=== PATIENT | male | born 1935 | race Caucasian/White ===

== ENCOUNTER 2017-06-16 08:02 | Inpatient (IN) | payer MEDICARE, MEDICAID ==
[~2017-06-16] VITALS: Ht 182.9 cm; Wt 87.7 kg
[~2017-06-16 08:02] MED LIST: CIPR500T3 PO; FURO20TA3 PO; GABA600T2 PO; HYDR-3237 PO; LEVO750T6 PO; POTA20TA89 PO
[2017-06-16] MEDS ORDERED: morphine SULFATE 10 MG/ML, 1ML IVPush ONE (08:30)
[2017-06-16] MEDS ORDERED: SODIUM CHLORIDE FLUSH 10ML SYR IVF ONE ×2 (08:30)
[2017-06-16] MEDS ORDERED: morphine SULFATE 10 MG/ML, 1ML ONE ×2 (08:48→15:18)
[2017-06-16] MEDS ORDERED: ONDANSETRON 2MG/ML, 2ML ONE (08:48)
[2017-06-16 09:19] LABS: HEMATOCRIT 40.2 % (39.2-51.8); HEMOGLOBIN 13.7 g/dL (13.7-18.0); WHITE BLOOD COUNT 12.4 x10^3/uL (3.4-10)
[2017-06-16 09:31] LABS: BLOOD UREA NITROGEN 36 mg/dL (7-18)
[2017-06-16 09:38] LABS: IS PT STATUS REG ER OR PRE ER? YES
[2017-06-16] MEDS ORDERED: BACITRACIN ZINC OINT 500U/GM, 0.9 GM ONE (10:22)
[2017-06-16] MEDS ORDERED: CEFTRIAXONE PMX 1GM/50ML 50 ML IV ONE (13:00)
[2017-06-16] MEDS ORDERED: SODIUM CHLORIDE 0.9% 1,000 ML IV SCH (15:04)
[2017-06-16] MEDS: morphine SULFATE 10 MG/ML, 1ML IVPush PRN ×2 (15:26→21:14)
[2017-06-16] MEDS ORDERED: ONDANSETRON 2MG/ML, 2ML IVPush PRN (15:30)
[2017-06-16] MEDS ORDERED: ACETAMINOPHEN 325 MG TABLET PO PRN (15:30)
[2017-06-16] MEDS ORDERED: ONDANSETRON ODT 4 MG PO PRN (15:30)
[2017-06-16] MEDS ORDERED: PHARMACY MAY ADJ FOR RENAL FX MC PRN (15:30)
[2017-06-16] MEDS: HEPARIN 5,000 UNITS/ML, 1ML SQ SCH ×2 (16:02→23:20)
[2017-06-16] MEDS: CEFTAROLINE 600 MG in SODIUM CHLORIDE 0.9% 100 ML IV SCH (16:02)
[2017-06-16] MEDS: HYDROcodone/APAP 5/325 TABLET PO PRN (20:05)
[2017-06-16] MEDS: GABAPENTIN 300 MG CAPSULE PO SCH (20:05)
[2017-06-16 20:14] VITALS: BP 132/72
[2017-06-17] MEDS: HYDROcodone/APAP 5/325 TABLET PO PRN (00:53)
[2017-06-17 03:30] VITALS: BP 134/80
[2017-06-17] MEDS: morphine SULFATE 10 MG/ML, 1ML IVPush PRN ×3 (04:10→16:03)
[2017-06-17] MEDS: CEFTAROLINE 600 MG in SODIUM CHLORIDE 0.9% 100 ML IV SCH ×2 (04:10→16:02)
[2017-06-17 06:15] LABS: HEMATOCRIT 33.8 % (39.2-51.8); HEMOGLOBIN 11.6 g/dL (13.7-18.0); WHITE BLOOD COUNT 9.4 x10^3/uL (3.4-10)
[2017-06-17 06:31] LABS: ASPARTATE AMINO TRANSFERASE 32 U/L (15-37); BLOOD UREA NITROGEN 32 mg/dL (7-18)
[2017-06-17 06:39] LABS: ANISOCYTOSIS 1+; POLYCHROMASIA 1+
[2017-06-17] MEDS: HEPARIN 5,000 UNITS/ML, 1ML SQ SCH ×3 (08:06→23:47)
[2017-06-17 08:09] VITALS: BP 138/76
[2017-06-17] MEDS ORDERED: SODIUM CHLORIDE 0.9% 1,000 ML IV SCH (10:30)
[2017-06-17 14:26] VITALS: BP 120/78
[2017-06-17 18:58] VITALS: BP 137/80
[2017-06-17] MEDS: GABAPENTIN 300 MG CAPSULE PO SCH (20:17)
[2017-06-18 01:20] VITALS: BP 143/91
[2017-06-18] MEDS: CEFTAROLINE 600 MG in SODIUM CHLORIDE 0.9% 100 ML IV SCH ×2 (04:06→16:29)
[2017-06-18] MEDS: morphine SULFATE 10 MG/ML, 1ML IVPush PRN ×2 (04:24→17:24)
[2017-06-18 05:22] LABS: BLOOD UREA NITROGEN 23 mg/dL (7-18)
[2017-06-18 06:33] LABS: HEMOGLOBIN 12.2 g/dL (13.7-18.0); WHITE BLOOD COUNT 8.9 x10^3/uL (3.4-10)
[2017-06-18 07:56] VITALS: BP 151/81
[2017-06-18] MEDS: HEPARIN 5,000 UNITS/ML, 1ML SQ SCH ×2 (08:49→16:29)
[2017-06-18] MEDS: MULTIVITAMIN 1 TABLET PO SCH (11:31)
[2017-06-18 13:25] VITALS: BP 172/81
[2017-06-18 13:57] VITALS: BP 148/75
[2017-06-18] MEDS: HYDROcodone/APAP 5/325 TABLET PO PRN ×2 (14:01→20:08)
[2017-06-18 19:00] VITALS: BP 156/82
[2017-06-18] MEDS: GABAPENTIN 300 MG CAPSULE PO SCH (20:08)
[2017-06-19] MEDS: HEPARIN 5,000 UNITS/ML, 1ML SQ SCH ×3 (00:09→16:05)
[2017-06-19 01:29] VITALS: BP 166/91
[2017-06-19] MEDS: morphine SULFATE 10 MG/ML, 1ML IVPush PRN (02:09)
[2017-06-19] MEDS: CEFTAROLINE 600 MG in SODIUM CHLORIDE 0.9% 100 ML IV SCH ×2 (03:45→16:05)
[2017-06-19 05:32] LABS: HEMATOCRIT 32.9 % (39.2-51.8); HEMOGLOBIN 11.3 g/dL (13.7-18.0); WHITE BLOOD COUNT 10.6 x10^3/uL (3.4-10)
[2017-06-19 06:07] LABS: BLOOD UREA NITROGEN 21 mg/dL (7-18)
[2017-06-19 07:18] VITALS: BP 164/81
[2017-06-19] MEDS: LISINOPRIL 10 MG TABLET PO SCH (08:26)
[2017-06-19] MEDS: DOCUSATE 100 MG CAPSULE PO SCH ×2 (08:26→21:06)
[2017-06-19] MEDS: POLYETHYLENE GLYCOL 17 GM PACKET PO SCH (08:27)
[2017-06-19] MEDS: HYDROcodone/APAP 5/325 TABLET PO PRN ×2 (08:27→17:56)
[2017-06-19] MEDS: MULTIVITAMIN 1 TABLET PO SCH (08:27)
[2017-06-19 13:54] VITALS: BP 142/80
[2017-06-19 20:02] VITALS: BP 120/69
[2017-06-19] MEDS: GABAPENTIN 300 MG CAPSULE PO SCH (21:06)
[2017-06-20 01:24] VITALS: BP 123/78
[2017-06-20] MEDS: CEFTAROLINE 600 MG in SODIUM CHLORIDE 0.9% 100 ML IV SCH ×2 (03:00→15:25)
[2017-06-20] MEDS: HEPARIN 5,000 UNITS/ML, 1ML SQ SCH ×3 (03:00→22:32)
[2017-06-20] MEDS: HYDROcodone/APAP 5/325 TABLET PO PRN ×3 (03:01→22:32)
[2017-06-20 04:51] LABS: BLOOD UREA NITROGEN 22 mg/dL (7-18)
[2017-06-20 04:53] LABS: HEMATOCRIT 32.8 % (39.2-51.8); HEMOGLOBIN 11.1 g/dL (13.7-18.0); WHITE BLOOD COUNT 7.5 x10^3/uL (3.4-10)
[2017-06-20] MEDS: morphine SULFATE 10 MG/ML, 1ML IVPush PRN ×2 (04:54→11:37)
[2017-06-20 06:40] VITALS: BP 113/70
[2017-06-20] MEDS: POLYETHYLENE GLYCOL 17 GM PACKET PO SCH (08:43)
[2017-06-20] MEDS: DOCUSATE 100 MG CAPSULE PO SCH ×2 (08:43→22:32)
[2017-06-20] MEDS: MULTIVITAMIN 1 TABLET PO SCH (08:51)
[2017-06-20] MEDS: LISINOPRIL 10 MG TABLET PO SCH (08:51)
[2017-06-20 13:56] VITALS: BP 138/84
[2017-06-20 20:00] VITALS: BP 132/75
[2017-06-20] MEDS: GABAPENTIN 300 MG CAPSULE PO SCH (22:32)
[2017-06-21 02:51] VITALS: BP 124/75
[2017-06-21] MEDS: CEFTAROLINE 600 MG in SODIUM CHLORIDE 0.9% 100 ML IV SCH (03:47)
[2017-06-21] MEDS: morphine SULFATE 10 MG/ML, 1ML IVPush PRN ×3 (03:51→22:21)
[2017-06-21] MEDS: HYDROcodone/APAP 5/325 TABLET PO PRN ×3 (05:36→20:41)
[2017-06-21] MEDS: HEPARIN 5,000 UNITS/ML, 1ML SQ SCH ×3 (06:29→20:41)
[2017-06-21 09:01] VITALS: BP 151/70
[2017-06-21] MEDS: POLYETHYLENE GLYCOL 17 GM PACKET PO SCH (09:03)
[2017-06-21] MEDS: MULTIVITAMIN 1 TABLET PO SCH (09:03)
[2017-06-21] MEDS: DOCUSATE 100 MG CAPSULE PO SCH ×2 (09:03→20:41)
[2017-06-21] MEDS: LISINOPRIL 10 MG TABLET PO SCH (09:03)
[2017-06-21] MEDS: CEFAZOLIN PMX 1GM/50ML 50 ML IV SCH ×2 (12:25→20:40)
[2017-06-21 14:27] VITALS: BP 138/71
[2017-06-21 20:00] VITALS: BP 144/81
[2017-06-21] MEDS: DOXYCYCLINE 100MG TABLET PO SCH (20:40)
[2017-06-21] MEDS: GABAPENTIN 300 MG CAPSULE PO SCH (20:41)
[2017-06-22 02:00] VITALS: BP 118/70
[2017-06-22] MEDS: CEFAZOLIN PMX 1GM/50ML 50 ML IV SCH (04:42)
[2017-06-22] MEDS: HEPARIN 5,000 UNITS/ML, 1ML SQ SCH ×2 (04:49→14:01)
[2017-06-22 07:12] VITALS: BP 137/79
[2017-06-22] MEDS: POLYETHYLENE GLYCOL 17 GM PACKET PO SCH (10:40)
[2017-06-22] MEDS: DOCUSATE 100 MG CAPSULE PO SCH (10:40)
[2017-06-22] MEDS: LISINOPRIL 10 MG TABLET PO SCH (10:40)
[2017-06-22] MEDS: MULTIVITAMIN 1 TABLET PO SCH (10:40)
[2017-06-22] MEDS: DOXYCYCLINE 100MG TABLET PO SCH (10:40)
[2017-06-22 13:07] VITALS: BP 139/75
[2017-06-22] MEDS: HYDROcodone/APAP 5/325 TABLET PO PRN (14:01)
[2017-06-22] MEDS ORDERED: HEPA50002 SQ (14:03)
[2017-06-22] MEDS ORDERED: HYDR-3240 PO (14:03)
[2017-06-22] MEDS ORDERED: DOCU-131 PO (14:03)
[2017-06-22] MEDS ORDERED: CEPH-376 PO (14:03)
[2017-06-22] MEDS ORDERED: TRAM50TA2 PO (14:03)
[2017-06-22] MEDS ORDERED: POLY17PO5 PO (14:03)
[2017-06-22] MEDS ORDERED: LISI-167 PO (14:03)
[2017-06-22] MEDS ORDERED: ACET325T14 PO (14:03)
[2017-06-22] MEDS ORDERED: DOXY100T PO (14:03)
[2017-06-22] MEDS ORDERED: MORP10VI10 IVPush (14:03)
[2017-06-22] MEDS ORDERED: ONDA4TAB13 PO (14:03)
[2017-06-22] MEDS ORDERED: MULT1TAB60 PO (14:03)
[2017-06-22] MEDS ORDERED: CEPHALEXIN 500 MG CAPSULE PO SCH (16:00)
[2017-06-22] MEDS: morphine SULFATE 10 MG/ML, 1ML IVPush PRN (17:18)
== END 2017-06-22 18:02 | DRG 871 ==
LOC: ED 08:50 → EDIP 12:25 → 4EST 13:23
PROVIDERS: ADMIT Family Medicine; ATTEND Family Medicine
DX: A41.9 Sepsis, unspecified organism (principal); N17.0 Acute kidney failure with tubular necrosis; E44.0 Moderate protein-calorie malnutrition; L03.115 Cellulitis of right lower limb; E87.1 Hypo-osmolality and hyponatremia; L03.116 Cellulitis of left lower limb; R65.20 Severe sepsis without septic shock; D53.9 Nutritional anemia, unspecified; D75.89 Other specified diseases of blood and blood-forming organs; I87.8 Other specified disorders of veins; K59.00 Constipation, unspecified; Z87.891 Personal history of nicotine dependence; Z88.0 Allergy status to penicillin
CPT/HCPCS: 36415; 71010; 80048; 80053; 82040; 82607; 82746; 83605; 83735; 83880; 84100; 84443; 84484; 85025; 85610; 85651; 86141; 87040; 93005; 93922; 96374; J0690; J0712; J1644; J2270; J7030

== ENCOUNTER 2018-10-07 08:10 | Outpatient (CLI) | payer MEDICARE, MEDICAID ==
[~2018-10-07 08:10] MED LIST changes: +ACET325T14 PO; +CEPH-376 PO; +DOCU-131 PO; +DOXY100T PO; -GABA600T2 PO; +GABA600T7 PO; +HEPA50002 SQ; +HYDR-3240 PO; +LISI-167 PO; +MORP10VI10 IVPush; +MULT1TAB60 PO; +ONDA4TAB13 PO; +POLY17PO5 PO; +TRAM50TA2 PO
== END 2018-10-07 23:59 | disposition home or self-care (01) ==
LOC: WOUND 08:10
PROVIDERS: ATTEND Family Medicine
DX: L97.811 Non-pressure chronic ulcer of other part of right lower leg limited to breakdown of skin (principal); L95.8 Other vasculitis limited to the skin; L03.115 Cellulitis of right lower limb; L03.116 Cellulitis of left lower limb; G62.9 Polyneuropathy, unspecified; I10 Essential (primary) hypertension; I87.2 Venous insufficiency (chronic) (peripheral); Z88.0 Allergy status to penicillin; Z87.891 Personal history of nicotine dependence
CPT/HCPCS: 97597; 97598; G0463

== ENCOUNTER → 2018-10-14 | Outpatient (CLI) | payer MEDICARE, MEDICAID | END | disposition home or self-care (01) | LOC: WOUND 09:04 | PROVIDERS: ATTEND Family Medicine | DX: L97.811 Non-pressure chronic ulcer of other part of right lower leg limited to breakdown of skin (principal); I87.2 Venous insufficiency (chronic) (peripheral); G62.9 Polyneuropathy, unspecified; I10 Essential (primary) hypertension; Z88.0 Allergy status to penicillin; Z87.891 Personal history of nicotine dependence | CPT/HCPCS: 29581; 97597; 97598 ==

== ENCOUNTER → 2018-10-21 | Outpatient (CLI) | payer MEDICARE, MEDICAID | END | disposition home or self-care (01) | LOC: CVU 12:45 | PROVIDERS: ATTEND Family Medicine | DX: I87.311 Chronic venous hypertension (idiopathic) with ulcer of right lower extremity (principal); L97.811 Non-pressure chronic ulcer of other part of right lower leg limited to breakdown of skin; I70.201 Unspecified atherosclerosis of native arteries of extremities, right leg; I77.1 Stricture of artery; Z87.891 Personal history of nicotine dependence | CPT/HCPCS: 93922; 93925; 93970 ==

== ENCOUNTER → 2018-10-28 | Outpatient (CLI) | payer MEDICARE, MEDICAID | END | disposition home or self-care (01) | LOC: WOUND 09:39 | PROVIDERS: ATTEND Family Medicine | DX: L97.811 Non-pressure chronic ulcer of other part of right lower leg limited to breakdown of skin (principal); L95.8 Other vasculitis limited to the skin; L03.115 Cellulitis of right lower limb; L03.116 Cellulitis of left lower limb; G62.9 Polyneuropathy, unspecified; I10 Essential (primary) hypertension; I87.2 Venous insufficiency (chronic) (peripheral); Z88.0 Allergy status to penicillin; Z87.891 Personal history of nicotine dependence | CPT/HCPCS: 29581 ==

== ENCOUNTER 2018-11-11 14:02 | Outpatient (CLI) | payer MEDICARE, MEDICAID | END 2018-11-11 23:59 | disposition home or self-care (01) | LOC: WOUND 14:02 | PROVIDERS: ATTEND Family Medicine | DX: L97.218 Non-pressure chronic ulcer of right calf with other specified severity (principal); I87.2 Venous insufficiency (chronic) (peripheral); G62.9 Polyneuropathy, unspecified; I10 Essential (primary) hypertension; Z88.0 Allergy status to penicillin; Z87.891 Personal history of nicotine dependence | CPT/HCPCS: 29581 ==

== ENCOUNTER → 2018-11-29 | Outpatient (CLI) | payer MEDICARE, MEDICAID | END | disposition home or self-care (01) | LOC: WOUND 08:30 | PROVIDERS: ATTEND Internal Medicine Infectious Disease | DX: L97.821 Non-pressure chronic ulcer of other part of left lower leg limited to breakdown of skin (principal); L97.321 Non-pressure chronic ulcer of left ankle limited to breakdown of skin; L97.811 Non-pressure chronic ulcer of other part of right lower leg limited to breakdown of skin; L97.218 Non-pressure chronic ulcer of right calf with other specified severity; I87.2 Venous insufficiency (chronic) (peripheral); G62.9 Polyneuropathy, unspecified; I10 Essential (primary) hypertension; Z88.0 Allergy status to penicillin; Z87.891 Personal history of nicotine dependence | CPT/HCPCS: 29581 ==

== ENCOUNTER 2018-12-07 08:28 | Outpatient (CLI) | payer MEDICARE, MEDICAID | END 2018-12-07 23:59 | disposition home or self-care (01) | LOC: WOUND 08:28 | PROVIDERS: ATTEND Internal Medicine | DX: L97.811 Non-pressure chronic ulcer of other part of right lower leg limited to breakdown of skin (principal); L97.321 Non-pressure chronic ulcer of left ankle limited to breakdown of skin; I87.2 Venous insufficiency (chronic) (peripheral); G62.9 Polyneuropathy, unspecified; I10 Essential (primary) hypertension; Z88.0 Allergy status to penicillin; Z87.891 Personal history of nicotine dependence | CPT/HCPCS: 29581; 97597 ==